=== PATIENT | male | born 1955 | race Caucasian/White ===

== ENCOUNTER → 2018-02-26 | Outpatient (CLI) | payer OTHER | END | disposition home or self-care (01) | LOC: CT 08:34 | PROC: BR20ZZZ Computerized Tomography (CT Scan) of Cervical Spine (ICD-10-PCS; principal; 2018-02-26) | DX: M48.02 Spinal stenosis, cervical region (principal) ==

== ENCOUNTER → 2018-05-06 | Outpatient (CLI) | payer OTHER ==
[2018-05-06 09:20] LABS: BASOPHIL % 0.2 % (0-2)
[2018-05-06 09:29] LABS: ALBUMIN 3.2 g/dL (3.4-5.0); BILIRUBIN TOTAL 0.25 mg/dL (0.20-1.00); CALCIUM 9.3 mg/dL (8.5-10.1); CARBON DIOXIDE 27.7 mmol/L (21-32); CHOLESTEROL/HDL RATIO 3.6; CREATININE SERUM 1.5 mg/dL (0.7-1.3); POTASSIUM SERUM 4.2 mmol/L (3.5-5.1); TOTAL PROTEIN, SERUM 7.1 g/dL (6.4-8.2)
[2018-05-06 09:38] LABS: PLATELET COUNT 459 x10^3mcL (130-400); RED CELL DISTRIBUTION WIDTH 16.6 % (11.5-14.5)
[2018-05-07 15:13] LABS: microalbumin:creatinine ratio < 3.7 (0.0-30.0)
== END | disposition home or self-care (01) ==
LOC: LB 08:29
DX: Z00.00 Encounter for general adult medical examination without abnormal findings (principal)
CPT/HCPCS: 86376

== ENCOUNTER → 2018-07-26 | Outpatient (CLI) | payer OTHER ==
[2018-07-26 10:19] LABS: CARBON DIOXIDE 29.5 mmol/L (21-32); CREATININE SERUM 1.3 mg/dL (0.7-1.3); POTASSIUM SERUM 4.5 mmol/L (3.5-5.1)
[2018-07-26 10:31] LABS: BASOPHIL % 0.6 % (0-2)
[2018-07-26 10:32] LABS: PLATELET COUNT 459 x10^3mcL (130-400); RED CELL DISTRIBUTION WIDTH 16.5 % (11.5-14.5)
== END | disposition home or self-care (01) ==
LOC: RD 08:41
DX: Z01.818 Encounter for other preprocedural examination (principal)